=== PATIENT | female | born 1945 | race Caucasian/White ===

== ENCOUNTER 2017-08-12 19:29 | Emergency (ER) | payer MEDICARE, OTHER ==
[2017-08-12] MEDS ORDERED: Lidocaine 2% 20 ML MDV INFILT ONE (19:30)
[2017-08-12] MEDS ORDERED: Amoxicillin/Clavulanate K 875-125 MG Tab PO ONE (20:14)
[2017-08-12] MEDS ORDERED: Diphtheria,Pertussis(Acell),Tetanus Vaccine 0.5 ML SDV IM ONE (20:15)
--- NOTE | 2017-08-12 20:21 | EDM.PDOC ---
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 No other acute medical issues. Onset: Today Onset Date: 08/12/17 Onset Time: 19:20 Duration: Minutes: Location: Reports: Upper Extremity, Left (left ring finger) Quality: Reports: Ache, Burning Severity: Mild Improves with: Reports: Rest Worsens with: Reports: Movement Context: Reports: Trauma Associated Symptoms: Reports: No Other Symptoms L 4th digit Pain Score (Numeric/FACES): 2 - Related Data Allergies Allergy/AdvReac Type Severity Reaction Status Date / Time No Known Allergies Allergy Verified 08/12/17 19:42 Home Meds: Home Meds Amoxicillin/Potassium Clav [Augmentin 875-125 Tablet] 1 each PO BID #20 tablet 08/12/17 [Rx] Cholecalciferol (Vitamin D3) [Vitamin D3] 2,000 unit PO DAILY 08/12/17 [History] Estrogen,Yasmeen/Me-Testosterone [Estrogen-Methyltestosterone Tb] 1 tab DAILY [History] FLUoxetine HCl [Fluoxetine HCl] 20 mg DAILY 08/12/17 [History] Multivitamin [Multivitamins] 1 each PO DAILY 08/12/17 [History] Past Medical History Gastrointestinal History: Reports: Cholelithiasis Genitourinary History: Reports: None, Other (See Below) Other Genitourinary History: rectocele CT MANAGER History: Reports: Endometriosis, Musculoskeletal History: Reports: Arthritis, Back Pain, Chronic Psychiatric History: Reports: Depression - Infectious Disease History Infectious Disease History: Reports: Chicken Pox, Measles, Mumps, Shingles - Past Surgical History HEENT Surgical History: Reports: Adenoidectomy, Cataract Surgery, Tonsillectomy Other HEENT Surgeries/Procedures: bilat cataract GI Surgical History: Reports: Cholecystectomy, Colonoscopy, Other (See Below) Other GI Surgeries/Procedures: exp lap Female Surgical History: Reports: D&C, Hysterectomy, Salpingo-Oophorectomy Other Female Surgeries/Procedures: d&C x 2 Social & Family History - Family History Family Medical History: Noncontributory ED ROS GENERAL - Review of Systems Review Of Systems: See Below Constitutional: Reports: No Symptoms HEENT: Reports: No Symptoms Respiratory: Reports: No Symptoms Cardiovascular: Reports: No Symptoms Endocrine: Reports: No Symptoms GI/Abdominal: Reports: No Symptoms : Reports: No Symptoms Musculoskeletal: Reports: No Symptoms Skin: Reports: Wound Neurological: Reports: No Symptoms Psychiatric: Reports: No Symptoms Hematologic/Lymphatic: Reports: No Symptoms Immunologic: Reports: No Symptoms ED EXAM, SKIN/RASH Exam: See Below Exam Limited By: No Limitations General Appearance: Alert, WD/WN, Mild Distress Eye Exam: Bilateral Eye: Normal Inspection Ears: Normal External Exam Nose: Normal Inspection Throat/Mouth: Normal Inspection Head: Atraumatic, Normocephalic Neck: Normal Inspection Respiratory/Chest: No Respiratory Distress Cardiovascular: Normal Peripheral Pulses, Regular Rate, Rhythm, No Edema, No Gallop Peripheral Pulses: 1+: Femoral (L), Femoral (R) GI/Abdominal: Normal Bowel Sounds, Soft (Female) Exam: Deferred Rectal (Female) Exam: Deferred Back Exam: Normal Inspection, Full Range of Motion Extremities: Normal Inspection, Normal Range of Motion, Non-Tender Neurological: Alert, Oriented, CN II-XII Intact, Normal Cognition, Normal Gait Psychiatric: Normal Affect, Normal Mood Skin: Warm, Dry, Normal Color, No Rash, Other (LAC left ring finger) Location, Skin: Head, Face, Neck, Chest Associated features: Warmth Lymphatic: No Adenopathy ED SKIN PROCEDURES - Laceration/Wound Repair Left Finger Lac/Wound length In cm: 1 Appearance: Subcutaneous, Linear, Clean Distal NVT: Neuro & Vascular Intact, No Tendon Injury Anesthetic Type: Local Local Anesthesia - Lidocaine (Xylocaine): 2% Plain Local Anesthetic Volume: 2cc Skin Prep: Providone-Iodine (Betadine) Saline Irrigation (cc's): 4 Exploration/Debridement/Repair: Wound Explored, In a Bloodless Field, Explored to Base Closed with: Sutures Suture Size: 4-0 # of Sutures: 3 Suture Type: Interrupted, Other (ehilon) Tetanus Status Addressed: Yes Complications: No Course - Vital Signs Text/Narrative:: 72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 No other acute medical issues. PE: LAC left ring finger 1 cm. Procedure: Please see note above Impression: Left ring finger laceration, repaired in the ed. Tx: Augmentin, TD, Wound repair Reexam: Improved Plan:D/C with instructions Last Recorded V/S: Last Vital Signs Temp 36.4 C 08/12/17 20:45 Pulse 76 08/12/17 19:43 Resp 18 08/12/17 20:45 BP 155/82 H 08/12/17 20:45 Pulse Ox 97 08/12/17 20:45 - Orders/Labs/Meds Meds: Medications Discontinued Medications Generic Name Dose Route Start Last Admin Trade Name Freq PRN Reason Stop Dose Admin Amoxicillin/Clavulanate Potassium 1 tab 08/12/17 20:14 08/12/17 23:15 Augmentin 875 Mg/125 Mg PO 08/12/17 20:15 Not Given ONETIME ONE Amoxicillin/Clavulanate Potassium 1 tab 08/12/17 21:00 08/12/17 20:45 Augmentin 875 Mg/125 Mg PO 1 tab Q12H AMBREEN Administration Amoxicillin/Clavulanate Potassium Confirm 08/12/17 21:14 08/12/17 23:10 Augmentin 875 Mg/125 Mg Administered 08/12/17 21:15 Not Given Dose 2 tab .ROUTE .STK-MED ONE Diphtheria/Tetanus/Acell Pertussis 0.5 ml 08/12/17 20:15 08/12/17 20:45 Adacel IM 08/12/17 20:16 0.5 ml .ONCE ONE Administration Departure - Departure Time of Disposition: 20:18 Disposition: Home, Self-Care 01 Condition: Good Clinical Impression: Laceration - Discharge Information Prescriptions: Amoxicillin/Potassium Clav [Augmentin 875-125 Tablet] 1 each PO BID #20 tablet Instructions: Laceration Care, Adult, [id number], VIS, Tetanus, Diphtheria, and Pertussis (Tdap) - CDC Referrals: Rodger Monroe MD [Primary Care Provider] - Forms: ED Department Discharge Additional Instructions: Please apply neosporine to wound twice daily for 5 days, take augmentin as recommended. wound check in 2-3 days, suture removal in 10 days. Please come back to the ed if your symptoms get worse acutely.
[2017-08-12] MEDS ORDERED: Amoxicillin/Clavulanate K 875-125 MG Tab PO SCH (21:00)
[2017-08-12] MEDS ORDERED: Amoxicillin/Clavulanate K 875-125 MG Tab ONE (21:14)
== END 2017-08-12 21:00 | disposition home or self-care (01) ==
LOC: FB.ED 19:29
DX: S61.215A Laceration without foreign body of left ring finger without damage to nail, initial encounter (principal); Z23 Encounter for immunization; F32.9 Major depressive disorder, single episode, unspecified; Z79.899 Other long term (current) drug therapy; W45.8XXA Other foreign body or object entering through skin, initial encounter; Y93.89 Activity, other specified
CPT/HCPCS: 12001; 90471; 90715; 99283; A9270; 99282

== ENCOUNTER 2024-04-15 11:45 | Emergency (ER) | payer MEDICARE, OTHER ==
[2024-04-15] MEDS: Sodium Chloride 0.9% 1,000 ML IV SCH (12:21)
[2024-04-15] MEDS: Ondansetron 4 MG/2 ML SDV IVPUSH ONE (12:22)
[2024-04-15] MEDS: Meclizine 25 MG Tab PO ONE (13:00)
== END 2024-04-15 15:30 | disposition home or self-care (01) ==
LOC: FB.ED 11:45
DX: H81.10 Benign paroxysmal vertigo, unspecified ear (principal); Z91.041 Radiographic dye allergy status; Z79.899 Other long term (current) drug therapy; Z90.49 Acquired absence of other specified parts of digestive tract; Z90.710 Acquired absence of both cervix and uterus
CPT/HCPCS: 96361; 96374; 96375; 99283; A9270; J2405; J3360; J7030